=== PATIENT | male | born 2000 | race Caucasian/White ===

== ENCOUNTER 2019-01-12 13:45 | Emergency (ER) | payer OTHER ==
[~2019-01-12] VITALS: Ht 180.3 cm; Wt 66.4 kg
[2019-01-12] MEDS ORDERED: CARBAMIDE PEROXIDE 6.5% 15 ML OTIC SOLUTION AS ONE (14:45)
[2019-01-12 16:00] VITALS: BP 122/71
== END 2019-01-12 16:14 | disposition home or self-care (01) ==
LOC: EMS 13:48
DX: H61.22 Impacted cerumen, left ear (principal)
CPT/HCPCS: 69209